=== PATIENT | male | born 1935 | race Hispanic/Latino ===

== ENCOUNTER → 2017-12-30 | Outpatient (CLI) | payer MEDICARE, OTHER ==
--- NOTE | 2017-12-30 10:56 | Diagnostic Imaging Report ---
TECHNIQUE: Magnetic resonance imaging of the RIGHT KNEE was performed WITHOUT injected contrast. HISTORY: Right knee pain COMPARISON: None available. FINDINGS: LIGAMENTS AND TENDONS: ACL: Mucoid degeneration PCL: Mucoid degeneration Collateral ligaments: Intact Iliotibial band: Unremarkable Popliteal tendon: Intact Extensor mechanism: Intact JOINT: Menisci: Medial: Complex tearing of the body and posterior horn with extrusion of the remnant body. Lateral: Intact without tear Articular Cartilage: Medial Compartment: Diffuse high-grade cartilage loss with areas of full-thickness erosion and subchondral edema. Lateral Compartment: Diffuse low-grade partial thickness cartilage loss. Patellofemoral Compartment: Diffuse intermediate grade partial-thickness cartilage loss. Joint Fluid: Small joint effusion. BONE: No focal or infiltrative bone marrow replacing abnormality. No acute fracture. SOFT TISSUES: Otherwise, unremarkable. IMPRESSION: Medial meniscus complex tear involving the body and posterior horn with extrusion of the remnant meniscal body results in areas of full-thickness cartilage loss and subchondral edema Signed by: Dr. Reji Hewitt M.D. on 12/30/2017 10:53 AM
== END ==
LOC: MRI 09:44
PROVIDERS: ATTEND Specialist
DX: S83.241A Other tear of medial meniscus, current injury, right knee, initial encounter (principal)